=== PATIENT | female | born 1975 | race Caucasian/White ===

== ENCOUNTER 2017-07-02 17:33 | Emergency (ER) | payer SELFPAY ==
[~2017-07-02] VITALS: Ht 160 cm; Wt 68.9 kg
[2017-07-02 18:13] VITALS: BP 114/62
[2017-07-02] MEDS: KETOROLAC 60 MG/2 ML VIAL IM ONE (21:04)
[2017-07-02 21:24] VITALS: BP 105/70
== END 2017-07-02 21:24 | disposition home or self-care (01) ==
LOC: MED 17:33
DX: R25.2 Cramp and spasm (principal); M79.662 Pain in left lower leg; I10 Essential (primary) hypertension; Z86.718 Personal history of other venous thrombosis and embolism
CPT/HCPCS: 93970; 96372; 99284; J1885; Q0092